=== PATIENT | female | born 2000 | race Hispanic/Latino ===

== ENCOUNTER 2022-05-18 19:54 | Emergency (ER) | payer OTHER, SELFPAY ==
[2022-05-18] MEDS ORDERED: Ibuprofen 800 MG TAB ONE (20:49)
[2022-05-18] MEDS ORDERED: Cyclobenzaprine 10 MG TAB ONE (20:49)
[2022-05-18] MEDS ORDERED: traMADol HCl 50 MG TAB ONE (20:49)
== END 2022-05-18 21:31 | disposition home or self-care (01) ==
LOC: MADERS 19:54
DX: S39.012A Strain of muscle, fascia and tendon of lower back, initial encounter (principal); S33.5XXA Sprain of ligaments of lumbar spine, initial encounter; S13.4XXA Sprain of ligaments of cervical spine, initial encounter; N83.209 Unspecified ovarian cyst, unspecified side; V43.52XA Car driver injured in collision with other type car in traffic accident, initial encounter
CPT/HCPCS: 99283